=== PATIENT | female | born 1970 | race Caucasian/White ===

== ENCOUNTER 2018-06-27 13:35 | Emergency (ER) | payer MEDICARE, MEDICAID ==
[~2018-06-27] VITALS: Ht 175.3 cm; Wt 63.0 kg
[2018-06-27 13:44] VITALS: BP 124/104
[2018-06-27] MEDS ORDERED: LORazepam 1 MG tablet PO ONE (15:00)
[2018-06-27] MEDS ORDERED: LORazepam 0.5 MG tablet PO ONE (15:45)
== END 2018-06-27 16:14 | disposition home or self-care (01) ==
LOC: ER 13:36
DX: R07.81 Pleurodynia (principal); F44.9 Dissociative and conversion disorder, unspecified; Z88.8 Allergy status to other drugs, medicaments and biological substances; W19.XXXA Unspecified fall, initial encounter; Y93.89 Activity, other specified; Y92.89 Other specified places as the place of occurrence of the external cause; Y99.8 Other external cause status
CPT/HCPCS: 71045; 71100; 99283